=== PATIENT | female | born 1960 | race Caucasian/White ===

== ENCOUNTER 2019-09-25 06:09 | Day surgery (SDC) | payer OTHER ==
[~2019-09-25 06:09] MED LIST: ALPR.25 PO; CEPH500 PO; LOSA25; MELO7.5; NAPR220; PROACE100; RXCEPH500 PO; TRAM50 PO; TRIHYD253B PO
[2019-09-25] MEDS ORDERED: Prednisone10 MG PO (07:09)
[2019-09-25] MEDS ORDERED: Augmentin 875-1 EACH PO (07:10)
== END 2019-09-25 12:48 | disposition home or self-care (01) ==
LOC: ORSCSDS 06:09
DX: J32.4 Chronic pansinusitis (principal); J34.2 Deviated nasal septum; J32.3 Chronic sphenoidal sinusitis; I10 Essential (primary) hypertension; E78.5 Hyperlipidemia, unspecified; Z79.899 Other long term (current) drug therapy
CPT/HCPCS: 88305; 88312; C1776; C2625; J1100; J2250; J2370; J2405; J2704; J2710; J2765; J3010; J7120

== ENCOUNTER → 2021-09-01 | Outpatient (CLI) | payer OTHER ==
[~2021-09-01] MED LIST changes: +Augmentin 875-1 EACH PO; +Prednisone10 MG PO
[2021-09-01 17:26] LABS: Hematocrit 38.6 % (33.0-51.0); Hemoglobin 12.7 g/dL (11.5-16.0); Mean Corpuscular HGB 28.2 pg (26.0-34.0); Mean Corpuscular Volume 86 fL (80-100); Red Blood Cell Count 4.51 M/mm3 (3.80-5.20); White Blood Cell Count 4.07 K/mm3 (4.00-11.30)
[2021-09-01 17:27] LABS: BASOPHILS ABSOLUTE AUTO 0.02 K/mm3 (0.00-0.23); BASOPHILS PERCENT AUTO 1 % (0-2); EOSINOPHILS ABSOLUTE AUTO 0.01 K/mm3 (0.00-0.68); EOSINOPHILS PERCENT AUTO 0 % (0-6); IMMATURE GRAN ABSOLUTE AUTO 0.01 K/mm3 (0.00-0.10); IMMATURE GRAN PERCENT AUTO 0 % (0-1); LYMPHOCYTES ABSOLUTE AUTO 0.78 K/mm3 (0.84-5.20); LYMPHOCYTES PERCENT AUTO 19 % (21-46); MONOCYTES ABSOLUTE AUTO 0.38 K/mm3 (0.16-1.47); MONOCYTES PERCENT AUTO 9 % (4-13); Mean Corpuscular HGB Conc 32.9 g/dL (31.5-36.5); Mean Platelet Volume 10.7 fL (9.1-12.4); NEUTROPHILS ABSOLUTE AUTO 2.87 K/mm3 (1.96-9.15); NEUTROPHILS PERCENT AUTO 71 % (41-73); Platelet Count 222 K/mm3 (150-400); RDW Coefficient Variation 14.1 % (11.7-14.2); RDW Standard Deviation 43.9 fL (35.1-46.3)
[2021-09-01 17:40] LABS: Anion Gap 10 mmol/L (6-16); Blood Urea Nitrogen 17 mg/dL (8-24); CO2, Blood 31 mmol/L (21-32); Chloride, Blood 101 mmol/L (98-108); Creatinine, Blood 1.06 mg/dL (0.40-1.00); Glomerular Filtration Rate 53 (60-); Glucose, Blood 83 mg/dL (70-99); Potassium, Blood 3.7 mmol/L (3.5-5.5); Sodium, Blood 142 mmol/L (136-145)
[2021-09-01 17:41] LABS: Troponin I <0.017 ng/mL (0.000-0.040)
== END | disposition home or self-care (01) ==
LOC: LAB 17:22 → LAB SHORT 17:22
PROVIDERS: Physician Assistant Surgical
DX: R07.89 Other chest pain (principal)
CPT/HCPCS: 80048; 84484; 85025; 85379

== ENCOUNTER 2021-11-18 08:45 | Day surgery (SDC) | payer OTHER ==
[~2021-11-18] VITALS: Ht 182.9 cm; Wt 113.3 kg
[2021-11-18] MEDS ORDERED: DILT30 PO (09:28)
== END 2021-11-18 11:24 | disposition home or self-care (01) ==
LOC: ORSCSDS 08:45
PROVIDERS: Surgery
PROC: 0DBM8ZX Excision of Descending Colon, Via Natural or Artificial Opening Endoscopic, Diagnostic (ICD-10-PCS; principal; 2021-11-18 10:00)
PROC: 0DB48ZX Excision of Esophagogastric Junction, Via Natural or Artificial Opening Endoscopic, Diagnostic (ICD-10-PCS; principal; 2021-11-18 10:00)
PROC: 0DB68ZX Excision of Stomach, Via Natural or Artificial Opening Endoscopic, Diagnostic (ICD-10-PCS; principal; 2021-11-18 10:00)
DX: R19.5 Other fecal abnormalities (principal); K21.9 Gastro-esophageal reflux disease without esophagitis; K22.70 Barrett's esophagus without dysplasia; K29.70 Gastritis, unspecified, without bleeding; K44.9 Diaphragmatic hernia without obstruction or gangrene; K52.9 Noninfective gastroenteritis and colitis, unspecified; I10 Essential (primary) hypertension; K76.0 Fatty (change of) liver, not elsewhere classified; D64.9 Anemia, unspecified; E66.9 Obesity, unspecified; Z68.34 Body mass index [BMI] 34.0-34.9, adult; Z79.82 Long term (current) use of aspirin; Z79.899 Other long term (current) drug therapy
CPT/HCPCS: 88305; 88342; J2704; J7120

== ENCOUNTER 2025-08-26 16:56 | Emergency (ER) | payer MEDICARE, OTHER ==
[~2025-08-26] VITALS: Ht 180.3 cm; Wt 111.1 kg
[~2025-08-26 16:56] MED LIST changes: +DILT30 PO
[2025-08-26 17:12] VITALS: BP 185/89
== END 2025-08-26 20:34 | disposition home or self-care (01) ==
LOC: ER 16:56
DX: M25.512 Pain in left shoulder (principal); M25.532 Pain in left wrist; M25.531 Pain in right wrist; R51.9 Headache, unspecified; W18.30XA Fall on same level, unspecified, initial encounter; I10 Essential (primary) hypertension; Z88.0 Allergy status to penicillin; Z88.8 Allergy status to other drugs, medicaments and biological substances; Z79.899 Other long term (current) drug therapy
CPT/HCPCS: 70450; 73030; 73100; 99284-25